=== PATIENT | female | born 1960 | race Caucasian/White ===

== ENCOUNTER 2017-01-09 | Emergency (ER) | payer BC ==
--- NOTE | 2017-01-09 00:13 | EDM.PDOC ---
ED HPI GENERAL MEDICAL PROBLEM - General Chief Complaint: ENT Problem Stated Complaint: STUCK ON HER THROAT Time Seen by Provider: 01/09/17 00:08 Source of Information: Reports: Patient, Family History Limitations: Reports: No Limitations - History of Present Illness INITIAL COMMENTS - FREE TEXT/NARRATIVE: 56 y.o.w.f swallowed peanuts at 9 pm last night and woke up with a scratch like pain at he lower ant neck. Pt stated the pain is moving down young.. Pt denied N/ V/D Dizziness or any other acute medical issues. Onset: Unknown/Unsure Onset Date: 01/08/17 Onset Time: 21:00 Duration: Hour(s):, Constant Location: Reports: Neck - Related Data Allergies Allergy/AdvReac Type Severity Reaction Status Date / Time codeine Allergy Hives Verified 01/09/17 00:07 ketorolac tromethamine Allergy Hives Verified 01/09/17 00:07 [From Toradol] Home Meds: Home Meds SUMAtriptan [Imitrex] 50 mg PO ONETIME #1 tablet 10/30/13 [Rx] Albuterol [Proair HFA] 2 puff PO Q4H PRN 11/11/14 [History] Biotin 1,000 mcg PO DAILY 11/11/14 [History] Calcium Carbonate/Vitamin D3 [Caltrate 600 + D Soft Chew Tab] 1 tab PO DAILY [History] Estrogens, Conjugated [Premarin Vaginal Crm] 1 applic VAG DAILY 11/11/14 [ History] FLUoxetine HCl [Fluoxetine HCl] 40 mg PO DAILY 11/11/14 [History] Flaxseed/Omega3,6,9/Fatty Acid [Flax Seed Oil 1,300 mg Softgel] 2 tab PO BID [History] Hydroxychloroquine [Plaquenil] 200 mg PO DAILY 11/11/14 [History] Leflunomide 20 mg PO DAILY 11/11/14 [History] MV-Mn/Iron/FA/Herbal Cmplx#190 [Vitamin D3 Complete Caplet] 1 tab PO BID [History] Metoprolol Succinate [Toprol XL 50mg] 50 mg PO DAILY 11/11/14 [History] Omeprazole [Prilosec] 40 mg PO BID 11/11/14 [History] Phentermine 30 mg PO DAILY 11/11/14 [History] SUMAtriptan Succinate [Imitrex] 6 mg SQ ASDIRECTED PRN 11/11/14 [History] predniSONE [Prednisone] 1 mg PO DAILY 11/11/14 [History] Acetaminophen [Tylenol Arthritis Pain] 1,250 mg PO ASDIRECTED 11/12/14 [History] Past Medical History Other Genitourinary History: BLADDER SLING Other OB/BYN History: VAGINAL PROLAPSE, TUBAL LIGATION,HYSTERECTOMY, RECTOCELE Social & Family History - Tobacco Use Smoking Status *Q: Former Smoker Years of Tobacco use: 30 Used Tobacco, but Quit: Yes Month Tobacco Last Used: quit 4 years ago - Caffeine Use Caffeine Use: Reports: Coffee - Alcohol Use Days Per Week of Alcohol Use: 0 - Recreational Drug Use Recreational Drug Use: No ED ROS ENT - Review of Systems Review Of Systems: See Below Constitutional: Reports: No Symptoms HEENT: Reports: Throat Pain Respiratory: Reports: No Symptoms Cardiovascular: Reports: No Symptoms Endocrine: Reports: No Symptoms GI/Abdominal: Reports: No Symptoms : Reports: No Symptoms Musculoskeletal: Reports: No Symptoms Skin: Reports: No Symptoms Neurological: Reports: No Symptoms Psychiatric: Reports: No Symptoms Hematologic/Lymphatic: Reports: No Symptoms Immunologic: Reports: No Symptoms ED EXAM, ENT - Physical Exam Exam: See Below Exam Limited By: No Limitations General Appearance: Alert, WD/WN, No Apparent Distress Eye Exam: Bilateral Eye: Normal Inspection Ears: Normal External Exam Nose: Normal Inspection Mouth/Throat: Normal Inspection, Normal Gums, Normal Lips, Normal Oropharynx Head: Atraumatic, Normocephalic Neck: Normal Inspection, Supple, Non-Tender, Full Range of Motion Respiratory/Chest: No Respiratory Distress, Lungs Clear, Normal Breath Sounds, No Accessory Muscle Use, Chest Non-Tender Cardiovascular: Normal Peripheral Pulses, Regular Rate, Rhythm, No Edema, No Gallop, No JVD, No Murmur GI/Abdominal: Normal Bowel Sounds, Soft, Non-Tender (Female) Exam: Deferred Rectal (Female) Exam: Deferred Back: Normal Inspection, Full Range of Motion Extremities: Normal Inspection, Normal Range of Motion, Non-Tender, No Pedal Edema, Normal Capillary Refill Neurological: Alert, Oriented, CN II-XII Intact, Normal Cognition, Normal Gait Psychiatric: Normal Affect, Normal Mood Skin: Warm, Dry, Intact, Normal Color, No Rash Lymphatic: No Adenopathy Course - Vital Signs Text/Narrative:: 56 y.o.w.f swallowed peanuts at 9 pm last night and woke up with a scratch like pain at he lower ant neck. Pt stated the pain is moving down young.. Pt denied N/ V/D Dizziness or any other acute medical issues. PE: WNWD wf NAD with FB sensation lower ant neck, minor Imaging: Soft tissue neck: NAD, official report is pending Impresson: FB sensation ant lower neck. Tx: Pt refused painmed Plan: D/C with instructions Last Recorded V/S: Last Vital Signs Temp 37.0 C 01/09/17 00:08 Pulse 88 01/09/17 00:08 Resp 20 01/09/17 00:08 BP 146/90 H 01/09/17 00:08 Pulse Ox 100 01/09/17 00:08 - Orders/Labs/Meds Orders: Active Orders 24 hr Category Date Time Status Neck Soft Tissue [CR] Stat Exams 01/09/17 00:10 Taken Departure - Departure Time of Disposition: 00:48 Disposition: Home, Self-Care 01 Condition: Good Clinical Impression: Sensation of foreign body in larynx - Discharge Information Referrals: PCP,None [Primary Care Provider] - Forms: ED Department Discharge Additional Instructions: Please increase f/u with your PMD/ENT or GI specialist if your symptoms do not get better in next 24 hours. Please come back to the ed if your symptoms get worse acutely. - My Orders Last 24 Hours: My Active Orders 01/09/17 00:10 Neck Soft Tissue [CR] Stat - Assessment/Plan Last 24 Hours: My Active Orders 01/09/17 00:10 Neck Soft Tissue [CR] Stat
[2017-01-09 01:00] VITALS: BP 133/71
--- NOTE | 2017-01-09 16:06 | CR ---
INDICATION: Foreign body in neck, question peanut. I feel something above jugular notch. NECK SOFT TISSUE: Frontal and lateral views of the neck were obtained and revealed the airway to be patent. No evidence of airway obstruction was seen. No definite radiopaque foreign body could be identified. Prevertebral space appeared to be normal. Hypertrophic degenerative changes are noted at C3-4 minimally, and to a moderate degree at C4-5, with disk disease suggested at C5-6 and possibly C6-7, hypertrophic changes there also. IMPRESSION: No radiopaque foreign body identified. Airway appears to be patent - correlate clinically. MTDD
== END 2017-01-09 00:55 | disposition home or self-care (01) ==
LOC: FB.ED
DX: R09.89 Other specified symptoms and signs involving the circulatory and respiratory systems (principal); T17.228A Food in pharynx causing other injury, initial encounter; M54.2 Cervicalgia; Z88.5 Allergy status to narcotic agent; Z79.899 Other long term (current) drug therapy; Z87.891 Personal history of nicotine dependence
CPT/HCPCS: 70360; 99283

== ENCOUNTER 2017-08-07 07:03 | Emergency (ER) | payer BC ==
[2017-08-07] MEDS ORDERED: Meclizine 25 MG Tab PO ONE (07:33)
[2017-08-07] MEDS ORDERED: Sodium Chloride 0.9% 1,000 ML IV ONE (07:33)
[2017-08-07] MEDS ORDERED: Ondansetron 4 MG/2 ML SDV IVPUSH ONE (07:39)
--- NOTE | 2017-08-07 07:53 | EDM.PDOC ---
ED HPI GENERAL MEDICAL PROBLEM - General Chief Complaint: Neurological Problem Stated Complaint: DIZZY NAUSUA Time Seen by Provider: 08/07/17 07:06 Source of Information: Reports: Patient, Family (sister) History Limitations: Reports: No Limitations - History of Present Illness INITIAL COMMENTS - FREE TEXT/NARRATIVE: 56 y.o.w.f came to the ed with her sister after she felt extremely dizzy with headache this morning while taking a bath. Pt felt extremely nauseated as well, but did not vomit. Pt says it "feels like a migraine". She has pain at her face as well, which is subsiding. She drinka a big pot of coffee daily. She had difficulty walking because of dizziness. No other acute medical issues. 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), Nausea/Vomiting, Other ( Photophobia) - Related Data Allergies Allergy/AdvReac Type Severity Reaction Status Date / Time codeine Allergy Hives Verified 08/07/17 08:55 ketorolac tromethamine Allergy Hives Verified 08/07/17 08:55 [From Toradol] Home Meds: Home Meds Albuterol [Proair HFA] 2 puff PO Q4H PRN 11/11/14 [History] Biotin 1,000 mcg PO DAILY 11/11/14 [History] Calcium Carbonate/Vitamin D3 [Caltrate 600 + D Soft Chew Tab] 1 tab PO DAILY [History] FLUoxetine HCl [Fluoxetine HCl] 40 mg PO BEDTIME 11/11/14 [History] Hydroxychloroquine [Plaquenil] 200 mg PO BID 11/11/14 [History] Leflunomide 20 mg PO DAILY 11/11/14 [History] MV-Mn/Iron/FA/Herbal Cmplx#190 [Vitamin D3 Complete Caplet] 1 tab PO BID [History] Metoprolol Succinate [Toprol XL 50mg] 50 mg PO BEDTIME 11/11/14 [History] Omeprazole [Prilosec] 40 mg PO BID 11/11/14 [History] predniSONE [Prednisone] 5 mg PO DAILY 11/11/14 [History] Meclizine [Antivert] 25 mg PO TID PRN #20 tab.chew 08/07/17 [Rx] Ondansetron [Zofran ODT] 4 mg PO Q6H PRN #16 tab.dis 08/07/17 [Rx] Past Medical History HEENT History: Reports: Impaired Vision Cardiovascular History: Reports: Hypertension Respiratory History: Reports: Asthma, Sleep Apnea Other Respiratory History: has CPAP Gastrointestinal History: Reports: GERD Genitourinary History: Reports: None Other Genitourinary History: BLADDER SLING [employer] History: Reports: Other OB/BYN History: VAGINAL PROLAPSE, TUBAL LIGATION,HYSTERECTOMY, RECTOCELE Musculoskeletal History: Reports: Fracture, RA Neurological History: Reports: Migraines Psychiatric History: Reports: Anxiety, Depression Endocrine/Metabolic History: Reports: Obesity/BMI 30+ Oncologic (Cancer) History: Reports: Malignant Melanoma Other Oncologic History: melanoma on R foot - Infectious Disease History Infectious Disease History: Reports: Chicken Pox, Mumps - Past Surgical History HEENT Surgical History: Reports: Adenoidectomy, Oral Surgery, Tonsillectomy GI Surgical History: Reports: Colonoscopy, EGD Female Surgical History: Reports: Hysterectomy, Tubal Ligation Musculoskeletal Surgical History: Reports: Carpal Tunnel Other Musculoskeletal Surgeries/Procedures:: bilat carpal tunnel Social & Family History - Family History Family Medical History: Noncontributory - Tobacco Use Smoking Status *Q: Former Smoker Years of Tobacco use: 30 Used Tobacco, but Quit: Yes Month/Year Tobacco Last Used: quit 4 years ago - Caffeine Use Caffeine Use: Reports: Coffee - Alcohol Use Days Per Week of Alcohol Use: 0 - Recreational Drug Use Recreational Drug Use: No ED ROS GENERAL - Review of Systems Review Of Systems: See Below Constitutional: Reports: No Symptoms HEENT: Reports: Sinus Problem, Vertigo Respiratory: Reports: No Symptoms Cardiovascular: Reports: No Symptoms Endocrine: Reports: No Symptoms GI/Abdominal: Reports: Nausea : Reports: No Symptoms Musculoskeletal: Reports: No Symptoms Skin: Reports: No Symptoms Neurological: Reports: Headache (subsided STEAM BONE PRESS TENDER) Psychiatric: Reports: No Symptoms Hematologic/Lymphatic: Reports: No Symptoms Immunologic: Reports: No Symptoms ED EXAM, NEURO - Physical Exam Exam: See Below Exam Limited By: No Limitations General Appearance: Alert, WD/WN, Mild Distress Eye Exam: Bilateral Eye: Nystagmus Ears: Normal External Exam Nose: Normal Inspection Throat/Mouth: Normal Lips, Normal Gums, Normal Voice, No Airway Compromise Head Exam: Atraumatic, Normocephalic Neck: Normal Inspection, Supple, Non-Tender, Full Range of Motion Respiratory/Chest: No Respiratory Distress, Lungs Clear, Normal Breath Sounds, No Accessory Muscle Use, Chest Non-Tender Cardiovascular: Normal Peripheral Pulses, Regular Rate, Rhythm, No Edema, No Gallop, No Murmur, No Rub GI/Abdominal: Normal Bowel Sounds, Soft, Non-Tender, No Organomegaly (Female) Exam: Deferred Rectal (Female) Exam: Deferred Neurological: Alert, Normal Mood/Affect, Normal Dorsiflexion, CN II-XII Intact, Normal Plantar Flexion, Oriented x 3, Abnormal Gait (initially due to dizziness) Back Exam: Normal Inspection, Full Range of Motion Extremities: Normal Inspection, Normal Range of Motion, Non-Tender, No Pedal Edema Psychiatric: Normal Affect, Normal Mood Skin Exam: Warm, Dry, Intact, Normal Color, No Rash Course - Vital Signs Text/Narrative:: 56 y.o.w.f came to the ed with her sister after she felt extremely dizzy with headache this morning while taking a bath. Pt felt extremely nauseated as well, but did not vomit. Pt says it "feels like a migraine". She has pain at her face as well, which is subsiding. She drinka a big pot of coffee daily. She had difficulty walking because of dizziness. No other acute medical issues. BP 145/ 69 Pulse 78 RR 18 Pulse ox 100% Temp 36.8 PE: 56 years old w f with dizziness, photophobia, nausea and unable to walk due to vertigo Labs: CBC nl BMP nl UA pos for SG elevated Impression: Vertigo, Dehydration. Tension H/A (subsided STEAM BONE PRESS TENDER) Tx: Antivert, Zofran, NS Reexam: Symptoms improved 100%, Pt was able to ambulate well on D/C Plan: D/C with instructions Last Recorded V/S: Last Vital Signs Temp 36.7 C 08/07/17 07:06 Pulse 78 08/07/17 07:06 Resp 18 08/07/17 08:58 BP 140/66 08/07/17 08:58 Pulse Ox 100 08/07/17 08:58 - Orders/Labs/Meds Orders: Active Orders 24 hr Category Date Time Status UA W/MICROSCOPIC [URIN] Stat Lab 08/07/17 07:15 Ordered Labs: Laboratory Tests 08/07/17 08/07/17 08/07/17 Range/Units 07:15 07:46 07:46 WBC 9.3 (4.5-12.0) X10-3/uL RBC 4.54 (3.23-5.20) x10(6)uL Hgb 13.9 (11.5-15.5) g/dL Hct 41.2 (30.0-51.3) % MCV 90.7 (80-96) fL MCH 30.5 (27.7-33.6) pg MCHC 33.6 (32.2-35.4) g/dL RDW 14.4 (11.5-15.5) % Plt Count 271 (125-369) X10(3)uL MPV 7.8 (7.4-10.4) fL Neut % (Auto) 82.9 H (46-82) % Lymph % (Auto) 9.1 L (13-37) % Burnett % (Auto) 4.6 (4-12) % Eos % (Auto) 2 (1.0-5.0) % Baso % (Auto) 2 (0-2) % Neut # (Auto) 7.7 (1.6-8.3) # Lymph # (Auto) 0.8 (0.6-5.0) # Burnett # (Auto) 0.4 (0.0-1.3) # Eos # (Auto) 0.2 (0.0-0.8) # Baso # (Auto) 0.2 (0.0-0.2) # Sodium 142 (135-145) mmol/L Potassium 4.6 (3.5-5.3) mmol/L Chloride 108 (100-110) mmol/L Carbon Dioxide 23 (21-32) mmol/L BUN 18 (7-18) mg/dL Creatinine 0.9 (0.55-1.02) mg/dL Est Cr Clr Drug Dosing 63.55 mL/min Estimated GFR (MDRD) > 60 (>60) BUN/Creatinine Ratio 20.0 (9-20) Glucose 122 H (80-116) mg/dL Calcium 9.0 (8.6-10.2) mg/dL TSH, Ultra Sensitive (0.36-3.74) IU/mL Urine Color Yellow (YELLOW) Urine Appearance Clear (CLEAR) Urine pH 5.0 (5.0-6.5) Ur Specific Ira 1.025 (1.010-1.025) Urine Protein Negative (NEGATIVE) mg/dL Urine Glucose (UA) Normal (NEGATIVE) mg/dL Urine Ketones Negative (NEGATIVE) mg/dL Urine Occult Blood Negative (NEGATIVE) Urine Nitrite Negative (NEGATIVE) Urine Bilirubin Negative (NEGATIVE) Urine Urobilinogen 1 H (NEGATIVE) mg/dL Ur Leukocyte Esterase Negative (NEGATIVE) Urine RBC 0-5 (0) Urine WBC 0-5 (0) Ur Squamous Epith Cells Moderate H (NS,R,O) Urine Bacteria Moderate H (NS) Urine Mucus Moderate H (NS) 08/07/ Range/Units 07:46 WBC (4.5-12.0) X10-3/uL RBC (3.23-5.20) x10(6)uL Hgb (11.5-15.5) g/dL Hct (30.0-51.3) % MCV (80-96) fL MCH (27.7-33.6) pg MCHC (32.2-35.4) g/dL RDW (11.5-15.5) % Plt Count (125-369) X10(3)uL MPV (7.4-10.4) fL Neut % (Auto) (46-82) % Lymph % (Auto) (13-37) % Burnett % (Auto) (4-12) % Eos % (Auto) (1.0-5.0) % Baso % (Auto) (0-2) % Neut # (Auto) (1.6-8.3) # Lymph # (Auto) (0.6-5.0) # Burnett # (Auto) (0.0-1.3) # Eos # (Auto) (0.0-0.8) # Baso # (Auto) (0.0-0.2) # Sodium (135-145) mmol/L Potassium (3.5-5.3) mmol/L Chloride (100-110) mmol/L Carbon Dioxide (21-32) mmol/L BUN (7-18) mg/dL Creatinine (0.55-1.02) mg/dL Est Cr Clr Drug Dosing mL/min Estimated GFR (MDRD) (>60) BUN/Creatinine Ratio (9-20) Glucose (80-116) mg/dL Calcium (8.6-10.2) mg/dL TSH, Ultra Sensitive 2.48 (0.36-3.74) IU/mL Urine Color (YELLOW) Urine Appearance (CLEAR) Urine pH (5.0-6.5) Ur Specific Ira (1.010-1.025) Urine Protein (NEGATIVE) mg/dL Urine Glucose (UA) (NEGATIVE) mg/dL Urine Ketones (NEGATIVE) mg/dL Urine Occult Blood (NEGATIVE) Urine Nitrite (NEGATIVE) Urine Bilirubin (NEGATIVE) Urine Urobilinogen (NEGATIVE) mg/dL Ur Leukocyte Esterase (NEGATIVE) Urine RBC (0) Urine WBC (0) Ur Squamous Epith Cells (NS,R,O) Urine Bacteria (NS) Urine Mucus (NS) Meds: Medications Discontinued Medications Generic Name Dose Route Start Last Admin Trade Name Freq PRN Reason Stop Dose Admin Sodium Chloride 1,000 mls @ 999 mls/hr 08/07/17 07:33 08/07/17 07:50 Normal Saline IV 08/07/17 08:33 999 mls/hr .BOLUS ONE Administration Meclizine HCl 50 mg 08/07/17 07:33 08/07/17 07:53 Antivert PO 08/07/17 07:34 50 mg ONETIME ONE Administration Ondansetron HCl 8 mg 08/07/17 07:39 08/07/17 07:50 Zofran IVPUSH 08/07/17 07:40 8 mg ONETIME ONE Administration Departure - Departure Time of Disposition: 08:48 Disposition: Home, Self-Care 01 Condition: Good Clinical Impression: Vertigo, Dehydration, Nausea - Discharge Information Prescriptions: Meclizine [Antivert] 25 mg PO TID PRN #20 tab.chew PRN Reason: Dizziness Ondansetron [Zofran ODT] 4 mg PO Q6H PRN #16 tab.dis PRN Reason: Nausea Instructions: Nausea, Adult, [id number], Dizziness, [id number] Referrals: Gian Gifford MD [Primary Care Provider] - Forms: ED Department Discharge Additional Instructions: Please increase water intake, please take Zofran for nausea and Antivert for dizziness, please follow up with regular MD at clinic as needed, come back if your symptoms get worse acutely - My Orders Last 24 Hours: My Active Orders 08/07/17 07:15 UA W/MICROSCOPIC [URIN] Stat - Assessment/Plan Last 24 Hours: My Active Orders 08/07/17 07:15 UA W/MICROSCOPIC [URIN] Stat
[2017-08-07 08:59] VITALS: BP 140/66
== END 2017-08-07 09:02 | disposition home or self-care (01) ==
LOC: FB.ED 07:03
DX: E86.0 Dehydration (principal); G44.209 Tension-type headache, unspecified, not intractable; R11.0 Nausea; I10 Essential (primary) hypertension; Z88.5 Allergy status to narcotic agent; Z88.6 Allergy status to analgesic agent; Z79.899 Other long term (current) drug therapy; Z87.891 Personal history of nicotine dependence
CPT/HCPCS: 36415; 80048; 81001; 84443; 85025; 96361; 96374; 99284; A9270; J2405; J7040

== ENCOUNTER 2017-11-04 16:26 | Emergency (ER) | payer BC ==
[2017-11-04] MEDS ORDERED: cefTRIAXone 1,000 MG VIAL IM ONE (17:05)
--- NOTE | 2017-11-04 17:12 | EDM.PDOC ---
ED HPI GENERAL MEDICAL PROBLEM - General Chief Complaint: Gastrointestinal Problem Stated Complaint: NAUSEA,FEVER,DIARRHEA,WELTS ON LEGS Time Seen by Provider: 11/04/17 16:45 Source of Information: Reports: Patient History Limitations: Reports: No Limitations - History of Present Illness INITIAL COMMENTS - FREE TEXT/NARRATIVE: [facility] comes into [facility] ED with a 36 hr hx of GI upset including some cramps, nausea and vomiting today. There has been some fever to 100.7 deg F, and painful reddened lesions appearing on her R proximal thigh, groin, and L lower abdomen. She is not aware of any exposure, ate little today, and reports no known systemic disorder. She has tried Ibuprofen for sxs relief. - Related Data Allergies Allergy/AdvReac Type Severity Reaction Status Date / Time codeine Allergy Hives Verified 08/07/17 08:55 ketorolac tromethamine Allergy Hives Verified 08/07/17 08:55 [From Toradol] Home Meds: Home Meds Albuterol [Proair HFA] 2 puff PO Q4H PRN 11/11/14 [History] Biotin 1,000 mcg PO DAILY 11/11/14 [History] Calcium Carbonate/Vitamin D3 [Caltrate 600 + D Soft Chew Tab] 1 tab PO DAILY [History] FLUoxetine HCl [Fluoxetine HCl] 40 mg PO BEDTIME 11/11/14 [History] Hydroxychloroquine [Plaquenil] 200 mg PO BID 11/11/14 [History] Leflunomide 20 mg PO DAILY 11/11/14 [History] MV-Mn/Iron/FA/Herbal Cmplx#190 [Vitamin D3 Complete Caplet] 1 tab PO BID [History] Metoprolol Succinate [Toprol XL 50mg] 50 mg PO BEDTIME 11/11/14 [History] Omeprazole [Prilosec] 40 mg PO BID 11/11/14 [History] predniSONE [Prednisone] 5 mg PO DAILY 11/11/14 [History] Meclizine [Antivert] 25 mg PO TID PRN #20 tab.chew 08/07/17 [Rx] Ondansetron [Zofran ODT] 4 mg PO Q6H PRN #16 tab.dis 08/07/17 [Rx] oxyCODONE HCl/Acetaminophen [Percocet 5-325 mg Tablet] 1 each PO Q6HR PRN #10 tablet 11/04/17 [Rx] Past Medical History HEENT History: Reports: Impaired Vision Cardiovascular History: Reports: Hypertension Respiratory History: Reports: Asthma, Sleep Apnea Other Respiratory History: has CPAP Gastrointestinal History: Reports: GERD Genitourinary History: Reports: None Other Genitourinary History: BLADDER SLING 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: VAGINAL PROLAPSE, TUBAL LIGATION,HYSTERECTOMY, RECTOCELE Musculoskeletal History: Reports: Fracture, RA Neurological History: Reports: Migraines Psychiatric History: Reports: Anxiety, Depression Endocrine/Metabolic History: Reports: Obesity/BMI 30+ Oncologic (Cancer) History: Reports: Malignant Melanoma Other Oncologic History: melanoma on R foot - Infectious Disease History Infectious Disease History: Reports: Chicken Pox, Mumps - Past Surgical History HEENT Surgical History: Reports: Adenoidectomy, Oral Surgery, Tonsillectomy GI Surgical History: Reports: Colonoscopy, EGD Female Surgical History: Reports: Hysterectomy, Tubal Ligation Musculoskeletal Surgical History: Reports: Carpal Tunnel Other Musculoskeletal Surgeries/Procedures:: bilat carpal tunnel Social & Family History - Family History Family Medical History: Noncontributory - Caffeine Use Caffeine Use: Reports: Coffee ED ROS GENERAL - Review of Systems Review Of Systems: See Below Constitutional: Reports: Fever, Malaise, Decreased Appetite HEENT: Reports: No Symptoms Respiratory: Reports: No Symptoms Cardiovascular: Reports: No Symptoms Endocrine: Reports: No Symptoms GI/Abdominal: Reports: Abdominal Pain, Nausea, Vomiting : Reports: No Symptoms Musculoskeletal: Reports: Muscle Pain (generalized) Skin: Reports: Lumps (abscesses formation R leg, L leg, and L lower abdomen) Neurological: Reports: No Symptoms Psychiatric: Reports: No Symptoms Hematologic/Lymphatic: Reports: No Symptoms Immunologic: Reports: No Symptoms ED EXAM, SKIN/RASH Exam: See Below Exam Limited By: No Limitations General Appearance: Alert, WD/WN, No Apparent Distress, Obese Ears: Normal External Exam Nose: Normal Inspection Throat/Mouth: Normal Inspection, Normal Oropharynx, Normal Voice Head: Normocephalic Neck: Normal Inspection, Supple, Non-Tender Respiratory/Chest: Lungs Clear, Normal Breath Sounds Cardiovascular: Regular Rate, Rhythm, No Murmur GI/Abdominal: Normal Bowel Sounds, Soft, Non-Tender, No Organomegaly, No Distention, No Mass (Female) Exam: Deferred Rectal (Female) Exam: Deferred Back Exam: Normal Inspection Extremities: Redness (early abscess formation R groin, R buttock, L upper thigh , and L lower abdomen) Neurological: Alert, Oriented, CN II-XII Intact, Normal Cognition, Normal Gait, No Motor/Sensory Deficits Psychiatric: Normal Affect, Normal Mood Skin: Warm, Dry Course - Vital Signs Text/Narrative:: Following assessment, I obtained a [employer] swab for MRSA screen, and obtained 2 culture specimens of R leg at site of abscess formation. I administered Rocephin 2 gm IM before discharge. - Orders/Labs/Meds Orders: Active Orders 24 hr Category Date Time Status CULTURE MRSA [RM] Stat Lab 11/04/17 16:55 Ordered CULTURE ROUTINE + SMEAR [RM] Stat Lab 11/04/17 16:55 Ordered CULTURE ROUTINE + SMEAR [RM] Stat Lab 11/04/17 16:55 Ordered Labs: Laboratory Tests 11/04/17 11/04/17 Range/Units 17:15 17:15 WBC 19.3 H (4.5-12.0) X10-3/uL RBC 4.21 (3.23-5.20) x10(6)uL Hgb 12.9 (11.5-15.5) g/dL Hct 38.0 (30.0-51.3) % MCV 90.2 (80-96) fL MCH 30.7 (27.7-33.6) pg MCHC 34.0 (32.2-35.4) g/dL RDW 14.9 (11.5-15.5) % Plt Count 218 (125-369) X10(3)uL MPV 7.2 L (7.4-10.4) fL Add Manual Diff Yes Neutrophils % (Manual) 82 (46-82) % Band Neutrophils % 5 (0-6) % Lymphocytes % (Manual) 4 L (13-37) % Monocytes % (Manual) 9 (4-12) % Sodium 136 (135-145) mmol/L Potassium 3.6 D (3.5-5.3) mmol/L Chloride 102 D (100-110) mmol/L Carbon Dioxide 25 (21-32) mmol/L BUN 15 (7-18) mg/dL Creatinine 1.2 H (0.55-1.02) mg/dL Est Cr Clr Drug Dosing TNP Estimated GFR (MDRD) 47 L (>60) BUN/Creatinine Ratio 12.5 (9-20) Glucose 114 (80-116) mg/dL Calcium 8.9 (8.6-10.2) mg/dL Meds: Medications Discontinued Medications Generic Name Dose Route Start Last Admin Trade Name Freq PRN Reason Stop Dose Admin Ceftriaxone Sodium 2,000 mg 11/04/17 17:05 11/04/17 17:19 Rocephin IM 11/04/17 17:06 2,000 mg ONETIME ONE Administration Departure - Departure Time of Disposition: 17:41 Disposition: Home, Self-Care 01 Condition: Fair Clinical Impression: Abscess and cellulitis of gluteal region - Discharge Information Prescriptions: oxyCODONE HCl/Acetaminophen [Percocet 5-325 mg Tablet] 1 each PO Q6HR PRN #10 tablet PRN Reason: Breakthrough Pain Referrals: Gian Gifford MD [Primary Care Provider] - Forms: ED Department Discharge - Problem List & Annotations (1) Abscess and cellulitis of gluteal region SNOMED Code(s): 659182815 Code(s): L02.31 - CUTANEOUS ABSCESS OF BUTTOCK; L03.317 - CELLULITIS OF BUTTOCK Status: Acute Current Visit: Yes Annotation/Comment:: I dispened Percocet 5/325 q 6 hrs prn, wmp continuous, and hydration. - Problem List Review Problem List Initiated/Reviewed/Updated: Yes - My Orders Last 24 Hours: My Active Orders 11/04/17 16:55 CULTURE MRSA [RM] Stat CULTURE ROUTINE + SMEAR [RM] Stat CULTURE ROUTINE + SMEAR [RM] Stat - Assessment/Plan Last 24 Hours: My Active Orders 11/04/17 16:55 CULTURE MRSA [RM] Stat CULTURE ROUTINE + SMEAR [RM] Stat CULTURE ROUTINE + SMEAR [RM] Stat Plan: Follow up with PCP tomorrow for further managment.
[2017-11-04 18:17] VITALS: BP 124/64
== END 2017-11-04 18:00 | disposition home or self-care (01) ==
LOC: FB.ED 16:26
DX: L02.31 Cutaneous abscess of buttock (principal); L03.317 Cellulitis of buttock; I10 Essential (primary) hypertension; J45.909 Unspecified asthma, uncomplicated; F41.9 Anxiety disorder, unspecified; K21.9 Gastro-esophageal reflux disease without esophagitis; F32.9 Major depressive disorder, single episode, unspecified; Z88.5 Allergy status to narcotic agent; Z79.899 Other long term (current) drug therapy
CPT/HCPCS: 36415; 80048; 85025; 87070; 87077; 87205; 96372; 99283; J0696; 87186

== ENCOUNTER 2020-10-31 08:33 | Emergency (ER) | payer BC ==
--- NOTE | 2020-10-31 08:48 | EDM.PDOC ---
ED HPI GENERAL MEDICAL PROBLEM - General Stated Complaint: MRSA Time Seen by Provider: 10/31/20 08:42 Source of Information: Reports: Patient History Limitations: Reports: No Limitations - History of Present Illness INITIAL COMMENTS - FREE TEXT/NARRATIVE: 59-year-old female who reports that on 10/22/2020, she developed a red, painful nodule on her right forearm, right hand, right groin and right buttock area. She reports they were warm to touch and that the area on her groin and buttock had redness surrounding it that seemed to spread out from total lump. She had no fevers or chills. She did develop aching all over her body. She was seen by Dr. Valente on 10/25/2020 and was placed on Bactrim for treatment of potential MRSA. 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 She does report that the redness and the increased warmth has decreased from these areas after she has been on the Bactrim she has had no vomiting. She rates the pain as an 8/10. It is achy. It is all over. She has had no nasal congestion. No cough. No sore throat. No difficulty breathing. No dysuria or hematuria. She has been eating and drinking normally. She does have rheumatoid arthritis and is on orenzia and arava but she stopped those on 10/25/2020 because she thought this was an infection. She reports that although the redness, swelling and pain in the areas of the lumps have improved, the malaise, dizziness, nausea and body aches have not improved and has seemed to worsen. She has had no diarrhea. There are no other associated signs or symptoms. There are no other modifying factors. 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 (see below) (Nothing.) Lower Back Pain Score (Numeric/FACES): 8 - Related Data Allergies Allergy/AdvReac Type Severity Reaction Status Date / Time codeine Allergy Hives Verified 11/04/17 18:05 ketorolac tromethamine Allergy Hives Verified 11/04/17 18:05 [From Toradol] Home Meds: Home Meds Albuterol [Proair HFA] 2 puff PO Q4H PRN 11/11/14 [History] Mv-Mn/Iron/Folic Acid/Herb 190 [Vitamin D3 Complete Caplet] 1 tab PO BID 11/11/14 [History] Meclizine [Antivert] 25 mg PO TID PRN #20 tab.chew 08/07/17 [Rx] Ondansetron [Zofran ODT] 4 mg PO Q6H PRN #16 tab.dis 08/07/17 [Rx] Calcium Citrate/Vitamin D3 [Calcium Citrate - Vit D Caplet] 1 tab PO DAILY 11/07/17 [History] Folic Acid 2 mg PO DAILY 11/07/17 [History] Methotrexate 0.8 ml SUBCUT SA 11/07/17 [History] predniSONE [Prednisone] 5 mg PO DAILY 11/07/17 [History] Acetaminophen [Tylenol] 650 mg PO Q4H PRN tablet 11/10/17 [Rx] Abatacept [Orencia] 125 mg IM DAILY 10/31/20 [History] Budesonide/Formoterol [Symbicort 80-4.5 MCG] 1 inh PO ASDIRECTED PRN 10/31/20 [History] FLUoxetine HCl [Fluoxetine HCl] 40 mg PO DAILY 10/31/20 [History] Ferrous Sulfate [Ferosul] 325 mg PO DAILY 10/31/20 [History] Hydroxychloroquine [Plaquenil] 200 mg PO DAILY 10/31/20 [History] Leflunomide [Arava] 20 mg PO DAILY 10/31/20 [History] Omeprazole 40 mg PO DAILY 10/31/20 [History] Sulfamethoxazole/Trimethoprim [Bactrim Ds Tablet] 1 tab PO DAILY 10/31/20 [History] Past Medical History HEENT History: Reports: Impaired Vision Cardiovascular History: Reports: Hypertension Respiratory History: Reports: Asthma, Sleep Apnea Other Respiratory History: has CPAP Gastrointestinal History: Reports: GERD Other Genitourinary History: BLADDER SLING 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 HAND History: VAGINAL PROLAPSE, TUBAL LIGATION,HYSTERECTOMY, RECTOCELE Musculoskeletal History: Reports: Fracture, RA Neurological History: Reports: Migraines Psychiatric History: Reports: Anxiety, Depression Endocrine/Metabolic History: Reports: Obesity/BMI 30+ Oncologic (Cancer) History: Reports: Malignant Melanoma Other Oncologic History: melanoma on R foot - Infectious Disease History Infectious Disease History: Reports: Chicken Pox, Mumps - Past Surgical History HEENT Surgical History: Reports: Adenoidectomy, Oral Surgery, Tonsillectomy GI Surgical History: Reports: Colonoscopy, EGD Female Surgical History: Reports: Hysterectomy, Tubal Ligation Musculoskeletal Surgical History: Reports: Carpal Tunnel (Bilateral) Other Musculoskeletal Surgeries/Procedures:: bilat carpal tunnel Social & Family History - Tobacco Use Tobacco Use Status *Q: Former Tobacco User - Caffeine Use Caffeine Use: Reports: Coffee Other Caffeine Use: 1 pot/day coffee - Alcohol Use Alcohol Use Frequency: Rarely - Living Situation & Occupation Living situation: Reports: 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 Denies: Fever, Chills HEENT: Denies: Throat Pain, Throat Swelling Respiratory: Denies: Shortness of Breath, Hemoptysis Cardiovascular: Denies: Chest Pain, Palpitations Endocrine: Reports: Fatigue GI/Abdominal: Reports: Nausea. Denies: Abdominal Pain, Black Stool, Vomiting : Denies: Dysuria, Hematuria Musculoskeletal: Reports: Other (Generalized body aches and myalgias.) Skin: Denies: Diaphoresis, Rash Neurological: Reports: Dizziness, Weakness (Generalized). Denies: Confusion Psychiatric: Reports: Anxiety Hematologic/Lymphatic: Reports: Anemia. Denies: Easy Bruising ED EXAM, GENERAL - Physical Exam Exam: See Below Exam Limited By: No Limitations General Appearance: Alert, WD/WN, Mild Distress, Obese Eye Exam: Bilateral Eye: EOMI, Normal Inspection Ears: Normal External Exam, Hearing Grossly Normal Ear Exam: Bilateral Ear: Auricle Normal Nose: Normal Inspection, Normal Mucosa, No Blood Throat/Mouth: Normal Inspection, Normal Lips, Normal Oropharynx, Normal Voice, No Airway Compromise Head: Atraumatic, Normocephalic Neck: Normal Inspection, Supple, Non-Tender, Full Range of Motion Respiratory/Chest: No Respiratory Distress, Lungs Clear, Normal Breath Sounds, No Accessory Muscle Use, Chest Non-Tender Cardiovascular: Normal Peripheral Pulses, Regular Rate, Rhythm, No Edema, No Murmur Peripheral Pulses: 2+: Radial (L), Radial (R), Dorsalis Pedis (L), Dorsalis Pedis (R) GI/Abdominal: Normal Bowel Sounds, Soft, Non-Tender, No Mass Back Exam: Normal Inspection, Full Range of Motion, Paraspinal Tenderness (In the lumbar spine area.), Other (No redness.) Extremities: Normal Inspection, Normal Range of Motion, No Pedal Edema, Normal Capillary Refill, Other (There is a painful nodule in the room and right hand there is no erythema or increased warmth. No fluctuance noted.) Neurological: Alert, Oriented, CN II-XII Intact, Normal Cognition, No Motor/Sensory Deficits Psychiatric: Normal Affect, Normal Mood Skin Exam: Warm, Dry, Intact, Normal Color, No Rash #1 Interpretation EKG Date: 10/31/20 Time: 09:06 Rhythm: NSR Rate (Beats/Min): 91 [place]: Normal P-Wave: Present QRS: Normal ST-T: Other (Specific ST-T changes.) QT: Normal Comparison: NA - No Prior EKG Course - Vital Signs Last Recorded V/S: Last Vital Signs Temp 36.6 C 10/31/20 08:34 Pulse 96 10/31/20 08:34 Resp 20 10/31/20 08:34 BP 141/75 H 10/31/20 08:34 Pulse Ox 98 10/31/20 08:34 Orthostatic Blood Pressure [ 169/101 Standing] Orthostatic Blood Pressure [ 162/90 Sitting] Orthostatic Blood Pressure [ 155/83 Supine] - Orders/Labs/Meds Orders: Active Orders 24 hr Category Date Time Status EKG Documentation Completion [RC] ASDIRECTED Care 10/31/20 09:03 Active EKG 12 Lead [EK] Routine Ther 10/31/20 09:02 Ordered Labs: Laboratory Tests 10/31/20 10/31/20 10/31/20 Range/Units 09:22 09:47 09:47 WBC 10.7 H (3.0-10.3) x10-3/uL RBC 4.95 (3.60-5.20) x10(6)uL Hgb 11.7 (11.4-15.5) g/dL Hct 38.1 (34.2-48.2) % MCV 77.0 (76.7-100.5) fL MCH 23.7 L (23.9-33.9) pg MCHC 30.8 L (31.9-34.8) g/dL RDW 17.8 H (12.3-16.5) % Plt Count 346 (151-488) x10(3)uL MPV 7.7 (7.1-12.4) fL Add Manual Diff Yes Neutrophils % (Manual) 85 H (46-82) % Band Neutrophils % 1 (0-6) % Lymphocytes % (Manual) 10 L (13-37) % Monocytes % (Manual) 3 L (4-12) % Eosinophils % (Manual) 1 (0-5) % ESR 31 H (0-20) mm/hr POC VBG pH (7.32-7.43) pH Units POC VBG pCO2 (41-51) mmHg POC VBG HCO3 (21-29) mmol/L VBG Base Excess (-2-3) mmol/L O2 Delivery Device Sodium 142 (135-145) mmol/L Potassium 4.2 (3.5-5.3) mmol/L Chloride 105 (100-110) mmol/L Carbon Dioxide 25 (21-32) mmol/L BUN 18 (7-18) mg/dL Creatinine 1.1 H (0.55-1.02) mg/dL Est Cr Clr Drug Dosing 50.16 mL/min Estimated GFR (MDRD) 51 L (>60) BUN/Creatinine Ratio 16.4 (9-20) Glucose 97 (80-116) mg/dL Calcium 9.0 (8.6-10.2) mg/dL Magnesium 1.8 (1.8-2.5) mg/dL Total Bilirubin 0.3 (0.1-1.3) mg/dL AST 22 (5-25) IU/L ALT 38 H (12-36) U/L Alkaline Phosphatase 74 (56-112) IU/L Troponin I (4.0-60.3) pg/mL C-Reactive Protein (0.5-0.9) mg/dL Total Protein 6.3 (6.0-8.0) g/dL Albumin 3.4 L (3.5-5.2) g/dL Globulin 2.9 g/dL Albumin/Globulin Ratio 1.2 Urine Color Yellow (YELLOW) Urine Appearance Slightly cloudy (CLEAR) Urine pH 5.0 (5.0-6.5) Ur Specific [place] 1.025 (1.010-1.025) Urine Protein Trace (NEGATIVE) mg/dL Urine Glucose (UA) Normal (NORMAL) mg/dL Urine Ketones Negative (NEGATIVE) mg/dL Urine Occult Blood Negative (NEGATIVE) Urine Nitrite Negative (NEGATIVE) Urine Bilirubin Small H (NEGATIVE) Urine Urobilinogen 1 H (NEGATIVE) mg/dL Ur Leukocyte Esterase Negative (NEGATIVE) U Hyaline Cast (Auto) Few H (NS) Urine WBC 0-5 (0-5) Ur Squamous Epith Cells Few H (NS,R,O) Urine Bacteria Few H (NS) 10/31/20 10/31/20 Range/Units 09:47 09:47 WBC (3.0-10.3) x10-3/uL RBC (3.60-5.20) x10(6)uL Hgb (11.4-15.5) g/dL Hct (34.2-48.2) % MCV (76.7-100.5) fL MCH (23.9-33.9) pg MCHC (31.9-34.8) g/dL RDW (12.3-16.5) % Plt Count (151-488) x10(3)uL MPV (7.1-12.4) fL Add Manual Diff Neutrophils % (Manual) (46-82) % Band Neutrophils % (0-6) % Lymphocytes % (Manual) (13-37) % Monocytes % (Manual) (4-12) % Eosinophils % (Manual) (0-5) % ESR (0-20) mm/hr POC VBG pH 7.38 (7.32-7.43) pH Units POC VBG pCO2 37 L (41-51) mmHg POC VBG HCO3 22 (21-29) mmol/L VBG Base Excess -3 L (-2-3) mmol/L O2 Delivery Device Room air Sodium (135-145) mmol/L Potassium (3.5-5.3) mmol/L Chloride (100-110) mmol/L Carbon Dioxide (21-32) mmol/L BUN (7-18) mg/dL Creatinine (0.55-1.02) mg/dL Est Cr Clr Drug Dosing mL/min Estimated GFR (MDRD) (>60) BUN/Creatinine Ratio (9-20) Glucose (80-116) mg/dL Calcium (8.6-10.2) mg/dL Magnesium (1.8-2.5) mg/dL Total Bilirubin (0.1-1.3) mg/dL AST (5-25) IU/L ALT (12-36) U/L Alkaline Phosphatase (56-112) IU/L Troponin I 11.7 (4.0-60.3) pg/mL C-Reactive Protein < 0.2 L (0.5-0.9) mg/dL Total Protein (6.0-8.0) g/dL Albumin (3.5-5.2) g/dL Globulin g/dL Albumin/Globulin Ratio Urine Color (YELLOW) Urine Appearance (CLEAR) Urine pH (5.0-6.5) Ur Specific [place] (1.010-1.025) Urine Protein (NEGATIVE) mg/dL Urine Glucose (UA) (NORMAL) mg/dL Urine Ketones (NEGATIVE) mg/dL Urine Occult Blood (NEGATIVE) Urine Nitrite (NEGATIVE) Urine Bilirubin (NEGATIVE) Urine Urobilinogen (NEGATIVE) mg/dL Ur Leukocyte Esterase (NEGATIVE) U Hyaline Cast (Auto) (NS) Urine WBC (0-5) Ur Squamous Epith Cells (NS,R,O) Urine Bacteria (NS) - Re-Assessments/Exams Free Text/Narrative Re-Assessment/Exam: 10/31/20 11:20: The patient's blood tests were reassuring. Her sedimentation rate was mildly elevated at 31 but her CRP was normal. Her white blood cell count was 10.7. A urinalysis was normal. The EKG is initially normal as well. The patient has remained hemodynamically stable throughout her emergency department visit. She is awake and alert and her exam is reassuring. I don't see any evidence of serious or significant infection and I question whether this might be a rheumatoid flare. I think that she should finish the Bactrim DS. She also needs to call her ear pull machine operator today and tried to get in to see her this week or the beginning of next. Cautions and reasons for return to the emergency department were discussed with the patient while she was in the emergency department and were detailed in the patient's discharge instructions. Departure - Departure Time of Disposition: 11:27 Disposition: Home, Self-Care 01 Condition: Good Clinical Impression: Generalized body aches, Malaise and fatigue Rheumatoid arthritis Qualifiers: Rheumatoid arthritis location: multiple sites Rheumatoid factor presence: unspecified presence Qualified Code(s): M06.9 - Rheumatoid arthritis, unspec ified - Discharge Information Additional Instructions: All of your blood tests were reassuring. Your EKG was normal. Your urine test was normal. I did not see any evidence of a serious infection or serious/significant problem at this point. I am not sure why you or having your symptoms. It sounds more like a rheumatoid arthritis flare. You should continue your current medications and finished the Bactrim DS. You should call your ear pull machine operator and attempt to get in to see her this week or beginning of next week. Back to the emergency department for trouble breathing,, fever, severe weakness, or any other concerning signs or symptoms. Sepsis Event Note (ED) - Focused Exam Vital Signs: Vital Signs Temp Pulse Resp BP Pulse Ox 10/31/20 08:34 36.6 C 96 20 141/75 H 98 - My Orders Last 24 Hours: My Active Orders 10/31/20 09:02 EKG 12 Lead [EK] Routine 10/31/20 09:03 EKG Documentation Completion [RC] ASDIRECTED - Assessment/Plan Last 24 Hours: My Active Orders 10/31/20 09:02 EKG 12 Lead [EK] Routine 10/31/20 09:03 EKG Documentation Completion [RC] ASDIRECTED
[2020-10-31 08:50] VITALS: BP 141/75; PULSE 96
[2020-10-31 09:56] LABS: BASE EXCESS VENOUS,POC -3 mmol/L (-2-3); HCO3 VENOUS,POC 22 mmol/L (21-29); PCO2 VENOUS,POC 37 mmHg (41-51); PH VENOUS,POC 7.38 pH Units (7.32-7.43)
== END 2020-10-31 11:48 | disposition home or self-care (01) ==
LOC: FB.ED 08:33
DX: M06.9 Rheumatoid arthritis, unspecified (principal); K21.9 Gastro-esophageal reflux disease without esophagitis; I10 Essential (primary) hypertension; E66.9 Obesity, unspecified; Z68.30 Body mass index [BMI] 30.0-30.9, adult; Z79.899 Other long term (current) drug therapy; Z87.891 Personal history of nicotine dependence; Z88.5 Allergy status to narcotic agent; Z88.6 Allergy status to analgesic agent
CPT/HCPCS: 36415; 80053; 81001; 83735; 84484; 85025; 85651; 86140; 93005; 99284-25

== ENCOUNTER 2022-07-02 08:14 | Day surgery (SDC) | payer BC, MEDICAID ==
[2022-07-02] MEDS ORDERED: Ondansetron 4 MG/2 ML SDV IVPUSH ONE (08:15)
[2022-07-02] MEDS ORDERED: Lactated Ringers 1,000 ML IV SCH (08:15)
[2022-07-02] MEDS ORDERED: Sodium Chloride 0.9% 10 ML Syringe FLUSH PRN (08:15)
[2022-07-02] MEDS ORDERED: Propofol 200 MG/20 ML SDV IV ONE (08:15)
[2022-07-02 09:17] VITALS: BP 158/73; PULSE 91
== END 2022-07-02 12:25 | disposition home or self-care (01) ==
LOC: FB.SDS 08:14
PROVIDERS: ATTEND Surgery
DX: K52.9 Noninfective gastroenteritis and colitis, unspecified (principal); K29.50 Unspecified chronic gastritis without bleeding; K57.30 Diverticulosis of large intestine without perforation or abscess without bleeding; K63.89 Other specified diseases of intestine; K29.80 Duodenitis without bleeding; K31.89 Other diseases of stomach and duodenum; D50.9 Iron deficiency anemia, unspecified; D72.829 Elevated white blood cell count, unspecified; E86.0 Dehydration; R63.4 Abnormal weight loss; K21.9 Gastro-esophageal reflux disease without esophagitis; M06.9 Rheumatoid arthritis, unspecified; G47.33 Obstructive sleep apnea (adult) (pediatric); F41.9 Anxiety disorder, unspecified; E66.9 Obesity, unspecified; F17.200 Nicotine dependence, unspecified, uncomplicated; Z79.899 Other long term (current) drug therapy; Z88.5 Allergy status to narcotic agent; Z88.8 Allergy status to other drugs, medicaments and biological substances; Z68.34 Body mass index [BMI] 34.0-34.9, adult
CPT/HCPCS: 00813; 88305; 88342; J2405; J2704; J7120